=== PATIENT | male | born 1965 | race Caucasian/White ===

== ENCOUNTER 2017-12-06 12:05 | Emergency (ER) | payer MEDICAID ==
[~2017-12-06] VITALS: Ht 188 cm; Wt 163.3 kg
[2017-12-06 13:07] VITALS: BP 170/80
== END 2017-12-06 14:21 | disposition home or self-care (01) ==
LOC: ER 12:05
DX: R56.9 Unspecified convulsions (principal); Z76.0 Encounter for issue of repeat prescription; Z88.0 Allergy status to penicillin; Z88.1 Allergy status to other antibiotic agents; Z88.6 Allergy status to analgesic agent

== ENCOUNTER 2018-06-10 15:11 | Emergency (ER) | payer MEDICAID ==
[~2018-06-10] VITALS: Ht 188 cm; Wt 113.4 kg
[2018-06-10 15:20] VITALS: BP 156/83
== END 2018-06-10 16:55 | disposition home or self-care (01) ==
LOC: ER 15:11
DX: I10 Essential (primary) hypertension (principal); R56.9 Unspecified convulsions; Z88.0 Allergy status to penicillin; Z88.5 Allergy status to narcotic agent; Z88.8 Allergy status to other drugs, medicaments and biological substances